=== PATIENT | female | born 2005 | race Caucasian/White ===

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

== ENCOUNTER 2023-08-23 20:41 | Emergency (ER) | payer MEDICAID, SELFPAY ==
[2023-08-23 21:16] VITALS: BP 146/104; PULSE 83; RESP 16; TEMP 36.8; O2SAT 100; BMI 19.3
[2023-08-23 22:00] VITALS: BP 134/68; PULSE 80; RESP 17; O2SAT 98
--- NOTE | 2023-08-23 22:50 | ED_ITS ---
HPI - Headache 2 General: Chief Complaint: Headache Stated Complaint: N/V, Time Seen by Provider: 08/23/23 22:42 History of Present Illness: 17-year-old female comes in today with c omplaints of headache for about 1 week with nausea and vomiting. Patient was concerned today due to feeling some twitching in her right eye. Patient reports history of headache but no migraines. Patient appears nontoxic. Patient was concerned that she may have caused a concussion because of hitting her head while standing up in her trailer. Review of Systems 2 General: Reports: 10 or more systems reviewed and unremarkable except in HPI and below Neuro: Reports: headache(s) [facility] ED 2 PFS: Medical History (Updated 08/23/23 @ 23:43 by BETTIE Hammond) Anemia Anxiety No pertinent family history Physical Exam 2 Const: COMMON NORMALS: alert HENMT: COMMON NORMALS: normocephalic HEAD & SCALP: normocephalic MOUTH: Normal oral and palatal mucosa present Neck/C-Spine: COMMON NORMALS: full ROM Resp: COMMON NORMALS: normal respiratory effort Cardio: COMMON NORMALS: regular rate RATE: regular rate GI: COMMON NORMALS: Soft to palpation and non-tender PALPATION: Yes Soft to palpation Back/Pelvis: COMMON NORMALS: thoracic and lumbar spine normal to inspection Extremity: COMMON NORMALS: normal to inspection Neuro: SENSORIUM/ORIENTATION: Yes alert Skin: COMMON NORMALS: turgor normal GENERAL SKIN EXAM: turgor normal Course 2 Vital Signs: Vital signs: Vital Signs Temperature 98.2 F 08/23/23 21:16 Pulse Rate 83 08/23/23 21:16 Respiratory Rate 16 08/23/23 21:16 Blood Pressure 146/104 08/23/23 21:16 Pulse Oximetry 100 08/23/23 21:16 Oxygen Delivery Me thod Room Air 08/23/23 21:16 MDM - Headache Medical Decision Making 17-year-old female comes in today with headache. Patient appears nontoxic. No focal neurodeficits. Patient was all extremities well. Vital signs are normal except for some mild elevation in blood pressure. Differential diagnosis includes but not limited to tension headache, migraine headache, viral syndrome, anxiety about health. CBC and CMP were normal. CT of the head showed no intracranial abnormality. Patient was given headache cocktail with dexamethasone, Reglan, ketorolac, and 500 mL of saline. Patient reports improvement of headache and symptoms. Reviewed exam with patient with recommendations for treatment and follow-up. Patient reported understanding agreed to plan. Lab Data 08/23/23 22:51 08/23/23 22:[address] 08/23/23 22:52 IMPRESSION: No acute intracranial abnormality on CT. Laboratory Results WBC 8.73 10^3/uL (4.5-13.0) 08/23/23 22:51 RBC 4.61 10^6/uL (3.85-5.65) 08/23/23 22:51 Hgb 13.50 g/dL (12.4-14.8) 08/23/23 22:51 Hct 40.4 % (36-47) 08/23/23 22:51 MCV 87.6 fl (85-98) 08/23/23 22:51 MCH 29.3 pg (27-33) 08/23/23 22:51 MCHC 33.4 g/dL (30-55) 08/23/23 22:51 RDW 12.6 % (12.1-15.1) 08/23/23 22:51 Plt Count 357 10^3/cmm (157-399) 08/23/23 22:51 MPV 9.3 fL (7.4-10.4) 08/23/23 22:51 Neut % (Auto) 55.2 % 08/23/23 22:51 Lymph % (Auto) 33.8 % 08/23/23 22:51 [place] % (Auto) 7.4 % 08/23/23 22:51 Eos % (Auto) 3.3 % 08/23/23 22:51 Baso % (Auto) 0.2 % 08/23/23 22:51 Neut # (Auto) 4.81 10^3/uL (1.8-8.0) 08/23/23 22:51 Lymph # (Auto) 3.0 10^3/uL (1.5-6.5) 08/23/23 22:51 [place] # (Auto) 0.7 10^3/uL (0.2-0.9) 08/23/23 22:51 Eos # (Auto) 0.3 10^3/uL (0.0-0.8) 08/23/23 22:51 Baso # (Auto) 0.0 10^3/uL (0.0-0.1) 08/23/23 22:51 Nucleated RBC % (auto) 0 % 08/23/23 22:51 Nucleated RBCs # 0.0 /100WBC 08/23/23 22:51 Sodium 141 mmol/L (136-145) 08/23/23 22:51 Potassium 3.5 mmol/L (3.5-5.1) 08/23/23 22:51 Chloride 105 mmol/L (98-107) 08/23/23 22:51 Carbon Dioxide 25 mmol/L (22-29) 08/23/23 22:51 Anion Gap 14.5 (5-19) 08/23/23 22:51 BUN 4 mg/dL (6-20) L 08/23/23 22:51 Creatinine 0.6 mg/dL (0.5-0.9) 08/23/23 22:51 GFR Calculation 128.8 mL/min (90-130) 08/23/23 22:51 Glucose 94 mg/dL (65-115) 08/23/23 22:51 Calculated Osmolality 289 mOsm/kg (285-295) 08/23/23 22:51 Calcium 9.0 mg/dL (8.5-10.5) 08/23/23 22:51 Total Bilirubin 0.4 mg/dL (0.15-1.2) 08/23/23 22:51 AST 21 U/L (0-32) 08/23/23 22:51 ALT 13 U/L (0-33) 08/23/23 22:51 Alkaline Phosphatase 64 U/L (35-105) 08/23/23 22:51 Total Protein 7.2 g/dL (6.6-8.7) 08/23/23 22:51 Albumin 4.7 g/dL (3.5-5.2) 08/23/23 22:51 Globulin 2.5 g/dL (1.3-4.6) 08/23/23 22:51 All radiology interpretation(s) finalized by discharge Discharge Plan Discharge Patient Disposition: Home Clinical Impression: Headache Qualifiers: Headache type: unspecified Headache chronicity pattern: acute headache I ntractability: not intractable Qualified Code(s): R51.9 - Headache, unspecified Condition: Stable Prescriptions: No Action hydrocodone-acetaminophen 5-325 mg tablet 1 tab PO Q4H PRN (Reason: Pain) Ventolin HFA 90 mcg/actuation HFA aerosol inhaler 2 puff INHALATION Q4H PRN (Reason: Shortness Of Breath) medroxyprogesterone 150 mg/mL suspension 150 mg IM Q90D escitalopram oxalate 10 mg tablet 10 mg PO QAM Iron Gummies 2 tab PO QAM triamcinolone acetonide 0.1 % cream 1 applic topical BID PRN (Reason: unknown) ibuprofen 600 mg tablet 600 mg PO Q8H PRN (Reason: pain) Qty: 20 0RF Discharge Orders: Discharge ED (Routine); Ordered 08/23/23 Ordered By: Virgilio Russ Referrals: Tayler Villalta PA [Primary Care Provider] - Discharge Diet: Usual diet Discharge Activity: Increase activity as tolerated Patient Instructions: Headache - Migraine (Adult) Activity Restrictions/Additional Instructions: Home and rest. 3 plenty water and fluids. Activity as tolerated. Follow-up with primary care for further instructions. Return to ED for new concerns. Stand Alone Forms: Work/School Release Coding Level of Care Code ED Procedures Rn for Zia Vazquez
[2023-08-23] MEDS: sodium chloride 0.9% 500 ML 999 ML IV (22:52)
--- NOTE | 2023-08-23 22:52 | CTR_ITS ---
PROCEDURE INFORMATION: Exam: CT Head Without Contrast Exam date and time: 08/23/2023 11:09 PM Age: 17 years old Clinical indication: Pain; Headache; Patient HX: C/O TREVIÑO with n/v TECHNIQUE: Imaging protocol: Computed tomography of the head without contrast. Radiation optimization: All CT scans at this facility use at least one of these dose optimization techniques: automated exposure control; mA and/or kV adjustment per patient size (includes targeted exams where dose is matched to clinical indication); or iterative reconstruction. COMPARISON: No relevant prior studies available. RADIATION DOSE METRICS: Total DLP (mGy-cm): 989.08 FINDINGS: Brain: Normal. No hemorrhage. Unremarkable white matter. No mass effect. Cerebral ventricles: No ventriculomegaly. Paranasal sinuses: Visualized sinuses are unremarkable. No fluid levels. Mastoid air cells: Visualized mastoid air cells are well aerated. Bones: Unremarkable. No acute fracture. Soft tissues: Unremarkable. CT/CT head wo con* [id number] IMPRESSION: No acute intracranial abnormality on CT.
[2023-08-23] MEDS: metoclopramide 5 mg/mL SDV 2 mL 10 MG IVP (22:53)
[2023-08-23] MEDS: ketorolac 30 mg/mL INJ 15 MG IVP (22:54)
[2023-08-23] MEDS: dexamethasone 10 mg/mL INJ IVP (22:55)
[2023-08-23 23:00] VITALS: BP 153/95; PULSE 97; RESP 18; O2SAT 100
[2023-08-23 23:03] LABS: Basophils % 0.2 %; Eosinophils # 0.3 10^3/uL (0.0-0.8); Eosinophils % 3.3 %; Hematocrit 40.4 % (36-47); Lymphocytes % 33.8 %; Mean Corpuscular HGB Conc 33.4 g/dL (30-55); Mean Corpuscular Hemoglobin 29.3 pg (27-33); Mean Corpuscular Volume 87.6 fl (85-98); Mean Platelet Volume 9.3 fL (7.4-10.4); Monocytes # 0.7 10^3/uL (0.2-0.9); Monocytes % 7.4 %; Neutrophils # 4.81 10^3/uL (1.8-8.0); Neutrophils % 55.2 %; Nucleated Red Blood Cells % 0 %; Platelet Count 357 10^3/cmm (157-399); Red Blood Count 4.61 10^6/uL (3.85-5.65); Red Cell Distribution Width 12.6 % (12.1-15.1); White Blood Count 8.73 10^3/uL (4.5-13.0)
[2023-08-23 23:23] LABS: Alanine Aminotransferase 13 U/L (0-33); Albumin Level 4.7 g/dL (3.5-5.2); Alkaline Phosphatase 64 U/L (35-105); Anion Gap 14.5 (5-19); Aspartate Amino Transferase 21 U/L (0-32); Blood Urea Nitrogen 4 mg/dL (6-20); Carbon Dioxide 25 mmol/L (22-29); Chloride 105 mmol/L (98-107); Creatinine Clr Calc Pharmacy 126.9493; Globulin 2.5 g/dL (1.3-4.6); Glomerular Filtration Rate 128.8 mL/min (90-130); Glucose 94 mg/dL (65-115); Osmolality Calculated 289 mOsm/kg (285-295); Potassium 3.5 mmol/L (3.5-5.1); Sodium 141 mmol/L (136-145); Total Bilirubin 0.4 mg/dL (0.15-1.2); Total Protein 7.2 g/dL (6.6-8.7)
[2023-08-24] VITALS: BP 121/86; PULSE 91; RESP 18; O2SAT 98
== END 2023-08-24 00:11 | disposition home or self-care (01) ==
PROVIDERS: Emergency Medicine; Emergency Provider Nurse Practitioner Family; PCP Physician Assistant
DX: R51.9 Headache, unspecified (principal)
CPT/HCPCS: 70450; 80053; 85025; 96361; 96374; 96375; 99285; J1100; J1885; J2765; J7040

== ENCOUNTER 2023-10-06 06:15 | Outpatient (CLI) | payer MEDICAID, SELFPAY ==
--- NOTE | 2023-10-06 | USR_ITS ---
PROCEDURE INFORMATION: Exam: US Pelvis, Transvaginal, Non-Obstetric Exam date and time: 10/06/2023 1:24 PM Age: 18 years old Clinical indication: Menstruation abnormalities; Excessive menstruation; Additional info: Excessive menstruation with irregular cycle TECHNIQUE: Imaging protocol: Real-time transvaginal pelvic (non-obstetric) ultrasound with image documentation. Transvaginal imaging was used for better evaluation of the endometrium, adnexa, and/or cervix. COMPARISON: US pelv w/transvag [id number] 10/17/2022 4:27 PM FINDINGS: Uterus: Uterus is normal. Endometrial stripe is normal, measuring 0.5 cm in thickness. Right ovary/adnexa: Normal. No mass. Normal ovarian blood flow on color Doppler. Left ovary/adnexa: Normal. No mass. Normal ovarian blood flow on color Doppler. Urinary bladder: Urinary bladder is limited. Intraperitoneal space: Trace amount of fluid noted in the pelvis, likely physiologic. Other findings: Small paraovarian cyst is seen between the left and right ovaries, measuring approximately 5.5 cm. US/US transvaginal [id number] IMPRESSION: 1. No acute findings. 2. Small paraovarian cyst.
== END 2023-10-06 06:16 | disposition home or self-care (01) ==
PROVIDERS: PCP Physician Assistant; Visit Provider Physician Assistant
DX: N92.1 Excessive and frequent menstruation with irregular cycle (principal)

== ENCOUNTER 2023-10-16 13:01 | Emergency (ER) | payer MEDICAID, SELFPAY ==
[2023-10-16 13:07] VITALS: BP 133/86; PULSE 80; RESP 16; TEMP 36.7; O2SAT 96; BMI 19.3
[2023-10-16 13:18] VITALS: PULSE 94; RESP 16; O2SAT 98
[2023-10-16 13:23] LABS: Basophils % 0.3 %; Eosinophils # 0.1 10^3/uL (0.0-0.8); Hematocrit 42.4 % (36-47); Lymphocytes # 1.1 10^3/uL (1.5-6.5); Lymphocytes % 16.3 %; Mean Corpuscular HGB Conc 33.7 g/dL (30-55); Mean Corpuscular Hemoglobin 28.8 pg (27-33); Mean Corpuscular Volume 85.5 fl (85-98); Mean Platelet Volume 9.5 fL (7.4-10.4); Monocytes # 0.5 10^3/uL (0.2-0.9); Monocytes % 7.4 %; Neutrophils # 4.79 10^3/uL (1.8-8.0); Neutrophils % 73.8 %; Nucleated Red Blood Cells % 0 %; Platelet Count 325 10^3/cmm (157-399); Red Blood Count 4.96 10^6/uL (3.85-5.65); Red Cell Distribution Width 12.1 % (12.1-15.1); White Blood Count 6.49 10^3/uL (4.5-13.0)
[2023-10-16] MEDS: sodium chloride 0.9% 1,000 ML 999 ML IV (13:25)
[2023-10-16] MEDS: ondansetron 2 mg/ML SDV 2 mL 4 MG IVP (13:26)
--- NOTE | 2023-10-16 13:32 | ECG_ITS ---
[facility] Test Date: 2023-10-16 Pat Name: David Oneil Department: Room: Gender: Female Decal Decorator: : 2005 Requested By: Josr Mejias Order Number: [id number] Jo MD: Henrik aRmírez M.D. Measurements Intervals [place] Rate: 85 P: -29 [place]: 153 QRS: 75 QRSD: 86 T: -3 QT: 350 QTc: 418 Interpretive Statements SINUS RHYTHM NONSPECIFIC T-WAVE ABNORMALITY Compared to ECG 07/02/2022 16:29:00 Short [place] interval no longer present Possible ischemia no longer present T-wave abnormality still present Electronically Signed On 10-16-2023 14:11:23 CDT by Henrik Ramírez M.D. [id number]
--- NOTE | 2023-10-16 13:38 | ED_ITS ---
HPI - Abdominal Pain 2 General: Chief Complaint: Abdominal Pain Stated Complaint: abd pain, back pain Time Seen by Provider: 10/16/23 13:06 Source: patient Mode of arrival: ambulatory History of Present Illness: 18-year-old female who presents emergenc y room with right-sided pelvic pain. She has seen a few days ago to pelvic cyst on the right ovary has been present for some time now. She is concerned it may be leaking she had increasing pain today with routine activities of daily living and going to work. No fever sweats or chills no dysuria urgency or frequency no hematochezia melena hematemesis coffee-ground emesis. She does not believe she is . MD elicited complaint: abdominal pain Pertinent past history: none Location: None Quality: cramping Associated Symptoms: Reports nausea; Denies bloating, chills, GI cramping, dysuria, fever(s) and vomiting Review of Systems 2 Const: Denies: fever(s) or chills Card: Denies: chest pain Resp: Denies: dyspnea GI: Reports: abdominal pain and nausea; Denies: vomiting, bloating or GI cramping : Denies: dysuria, urinary frequency or urinary urgency Musc: Denies: neck pain or back pain Skin/Breast: Denies: rash PFSH ED 2 PFSH: Medical History Anemia Anxiety No pertinent family history Physical Exam 2 Const: GENERAL APPEARANCE: cooperative and comfortable O RIENTATION/CONSCIOUSNESS: Yes awake, Yes oriented to person, Yes oriented to place and Yes oriented to time HENMT: COMMON NORMALS: normocephalic, atraumatic and hearing grossly normal bilaterally HEAD & SCALP: normocephalic and atraumatic Resp: COMMON NORMALS: normal respiratory effort, No retractions, No use of accessory muscles and clear to auscultation bilaterally AUSCULTATION: clear to auscultation bilaterally Cardio: COMMON NORMALS: regular rate, regular rhythm and No murmurs present (Cardio) RATE: regular rate RHYTHM: regular rhythm GI: COMMON NORMALS: Soft to palpation and No hepatosplenomegaly present A USCULTATION: Yes normoactive bowel sounds PALPATION: Yes Soft to palpation, No Tenderness to palpation present (GI), No Guarding due to palpation present (GI) and Yes No hepatosplenomegaly present Extremity: COMMON NORMALS: normal to inspection, capillary refill normal, no clubbing, cyanosis or edema, no calf tenderness and no pedal edema Neuro: SENSORIUM/ORIENTATION: Yes oriented to person, Yes oriented to place and Yes oriented to time Skin: COMMON NORMALS: no rashes or lesions noted GENERAL SKIN EXAM: no rashes or lesions noted Course 2 Vital Signs: Vital signs: Vital Signs Temperature 98.1 F 10/16/23 13:07 Pulse Rate 94 10/16/23 14:29 Respiratory Rate 16 10/16/23 14:29 Blood Pressure 136/85 10/16/23 14:29 Pulse Oximetry 96 10/16/23 14:29 Oxygen Delivery Me thod Room Air 10/16/23 14:29 MDM - Abdominal Pain Medical Decision Making Pelvic ultrasound shows unchanged pelvic cysts rather large. Dr. Luna made mention that it dates back into 2022. She is very petite young lady at this point I think it would be ridley for her to see gynecology. Will refer back to primary care for referral to gynecology. There is comment about potential for ovarian torsion and Dr. Fatima's note however I contacted her she said the blood flow is good which is also noted in her note and that there is no evidence of ovarian torsion at this time but she is concerned because of the size of this and is positioning the patient may be susceptible to it this is why Dr. Fatima and I both are recommending that she see gynecology. Medical Records I reviewed the patient's medical records. Lab Data I reviewed the patient's lab results. 10/16/23 13:17 10/16/23 13:17 Labs/Radiology: Radiology Impressions Transvaginal US 10/16/23 13:39 IMPRESSION: 1. There is a large simple cystic mass centered in the cul-de-sac which extends to abut each ovary. Slightly greater contact on the RIGHT ovary. This has been previously described without significant change since 10/17/2022. Cyst measures 5.7 x 4.5 x 6.0 cm. Ovarian cyst versus paraovarian cyst. Due to the size and contact on the ovaries there is some concern for ovarian torsion. At this time both ovaries contain normal vascularity. As there has been no significant improvement in size consider DATA PROCESSING OPERATOR evaluation for possible surgical evaluation. 2. There are multiple small follicles within each ovary. The number is approaching follicles necessary for polycystic ovarian syndrome. Laboratory Results WBC 6.49 10^3/uL (4.5-13.0) 10/16/23 13:17 RBC 4.96 10^6/uL (3.85-5.65) 10/16/23 13:17 Hgb 14.30 g/dL (12.4-14.8) 10/16/23 13:17 Hct 42.4 % (36-47) 10/16/23 13:17 MCV 85.5 fl (85-98) 10/16/23 13:17 MCH 28.8 pg (27-33) 10/16/23 13:17 MCHC 33.7 g/dL (30-55) 10/16/23 13:17 RDW 12.1 % (12.1-15.1) 10/16/23 13:17 Plt Count 325 10^3/cmm (157-399) 10/16/23 13:17 MPV 9.5 fL (7.4-10.4) 10/16/23 13:17 Neut % (Auto) 73.8 % 10/16/23 13:17 Lymph % (Auto) 16.3 % 10/16/23 13:17 [place] % (Auto) 7.4 % 10/16/23 13:17 Eos % (Auto) 2.0 % 10/16/23 13:17 Baso % (Auto) 0.3 % 10/16/23 13:17 Neut # (Auto) 4.79 10^3/uL (1.8-8.0) 10/16/23 13:17 Lymph # (Auto) 1.1 10^3/uL (1.5-6.5) L 10/16/23 13:17 [place] # (Auto) 0.5 10^3/uL (0.2-0.9) 10/16/23 13:17 Eos # (Auto) 0.1 10^3/uL (0.0-0.8) 10/16/23 13:17 Baso # (Auto) 0.0 10^3/uL (0.0-0.1) 10/16/23 13:17 Nucleated RBC % (auto) 0 % 10/16/23 13:17 Nucleated RBCs # 0.0 /100WBC 10/16/23 13:17 Sodium 142 mmol/L (136-145) 10/16/23 13:17 Potassium 3.9 mmol/L (3.5-5.1) 10/16/23 13:17 Chloride 107 mmol/L (98-107) 10/16/23 13:17 Carbon Dioxide 21 mmol/L (22-29) L 10/16/23 13:17 Anion Gap 17.9 (5-19) 10/16/23 13:17 BUN 5 mg/dL (6-20) L 10/16/23 13:17 Creatinine 0.7 mg/dL (0.5-0.9) 10/16/23 13:17 GFR Calculation 106.7 mL/min (90-130) 10/16/23 13:17 Glucose 93 mg/dL (65-115) 10/16/23 13:17 Calculated Osmolality 291 mOsm/kg (285-295) 10/16/23 13:17 Calcium 9.8 mg/dL (8.5-10.5) 10/16/23 13:17 Total Bilirubin 0.7 mg/dL (0.15-1.2) 10/16/23 13:17 AST 20 U/L (0-32) 10/16/23 13:17 ALT 14 U/L (0-33) 10/16/23 13:17 Alkaline Phosphatase 72 U/L (35-105) 10/16/23 13:17 Total Protein 7.6 g/dL (6.6-8.7) 10/16/23 13:17 Albumin 4.9 g/dL (3.5-5.2) 10/16/23 13:17 Globulin 2.7 g/dL (1.3-4.6) 10/16/23 13:17 HCG, Qual Negative (Negative) 10/16/23 13:17 Urine Color Yellow (Yellow) 10/16/23 14:30 Urine Appearance Slightly cloudy (CLEAR) 10/16/23 14:30 Urine pH 8 (5-7) H 10/16/23 14:30 Ur Specific [place] 1.005 (1.005-1.030) 10/16/23 14:30 Urine Protein Neg (Negative) 10/16/23 14:30 Urine Glucose (UA) Norm (Normal) 10/16/23 14:30 Urine Ketones 1+ (Negative) H 10/16/23 14:30 Urine Blood 2+ (Negative) H 10/16/23 14:30 Urine Nitrate Negative (Negative) 10/16/23 14:30 Urine Bilirubin Neg (Negative) 10/16/23 14:30 Urine Urobilinogen Norm mg/dL (Negative) 10/16/23 14:30 Ur Leukocyte Esterase Trace (Negative) H 10/16/23 14:30 Urine RBC 0-4 /hpf (0-2) H 10/16/23 14:30 Urine WBC Rare /hpf (0-5) 10/16/23 14:30 Ur Squamous Epith Cells 0-4 /hpf (0-5) H 10/16/23 14:30 Ur Transition Epith Cell 0-4 /hpf 10/16/23 14:30 Amorphous Sediment Not Reportable 10/16/23 14:30 Urine Bacteria None /hpf (NONE) 10/16/23 14:30 Urine Mucus None /hpf 10/16/23 14:30 All radiology interpretation(s) finalized by discharge Discharge Plan Discharge Patient Disposition: Home Clinical Impression: Ovarian cyst Condition: Stable Prescriptions: New diclofenac sodium 75 mg tablet,delayed release (DR/EC) 75 mg PO Q12H PRN (Reason: pain) Qty: 20 0RF No Action albuterol sulfate [Ventolin HFA] 90 mcg/actuation HFA aerosol inhaler 2 puff INHALATION Q4H PRN (Reason: Shortness Of Breath) medroxyprogesterone 150 mg/mL suspension 150 mg IM Q90D Discharge Orders: Discharge ED (Routine); Ordered 10/16/23 Ordered By: Josr Mcconnell Referrals: Tayler Villalta PA [Primary Care Provider] - Discharge Diet: Usual diet Discharge Activity: Increase activity as tolerated Patient Instructions: Opioid Safety, Pain Management Activity Restrictions/Additional Instructions: Thank you for choosing [facility] for your healthcare needs today. It is very important that you follow up as instructed or that you return to the Emergency Department should you have concerns or if your condition changes or worsens in any way. You were seen today with pelvic pain. The cyst on the right ovary is unchanged in size. You can use diclofenac as needed. Recommend that you follow-up with your primary care doctor referral to gynecology for this cyst. Coding Level of Care Code ED Welder Fitter Helper for Zia Vazquez
--- NOTE | 2023-10-16 13:39 | US_ITS ---
WS: [id number] US transvaginal [id number] HISTORY: pelvic pain, r ovarian cyst COMPARISON: 10/06/2023, 10/17/2022 Uterus: 6.3 cm x 3.7 cm x 3.3 cm. Normal size anteverted uterus. No fibroid or mass. Endometrium: 0.4 cm. Normal. Right ovary: 3.4 cm x 3.3 cm x 2.6 cm. Normal size and vascularity, no cystic or solid masses. Severa l small peripheral follicles. Deep in the cul-de-sac is a large simple cyst measuring 5.7 x 4.5 x 6.0 cm. Mass extends across the m idline and does abut each ovary with minimal displacement. There is through transmission. This may be an extra ovarian cyst or exophytic from the RIGHT ovary. The largest contact is on the RIGHT ovary. Cyst has not significantly increased in size since 10/06/2023 Left ovary: 2.7 cm x 2.5 cm x 2.7 cm. Normal size and vascularity, no cystic or solid masses. Multipl e small peripheral follicles. No free fluid in the cul-de-sac. US/US transvaginal [id number] IMPRESSION: 1. There is a large simple cystic mass centered in the cul-de-sac which extend s to abut each ovary. Slightly greater contact on the RIGHT ovary. This has bee n previously described without significant change since 10/17/2022. Cyst measure s 5.7 x 4.5 x 6.0 cm. Ovarian cyst versus paraovarian cyst. Due to the size and contact on the ovaries there is some concern for ovarian torsion. At this time both ovaries contain normal vascularity. As there has been no significant impr ovement in size consider CASH CONTROL SPECIALIST evaluation for possible surgical evaluation. 2. There are multiple small follicles within each ovary. The number is approac omid follicles necessary for polycystic ovarian syndrome.
[2023-10-16 13:41] LABS: Alanine Aminotransferase 14 U/L (0-33); Albumin Level 4.9 g/dL (3.5-5.2); Alkaline Phosphatase 72 U/L (35-105); Blood Urea Nitrogen 5 mg/dL (6-20); Calcium 9.8 mg/dL (8.5-10.5); Carbon Dioxide 21 mmol/L (22-29); Chloride 107 mmol/L (98-107); Creatinine Clr Calc Pharmacy 107.9144; Globulin 2.7 g/dL (1.3-4.6); Glomerular Filtration Rate 106.7 mL/min (90-130); Glucose 93 mg/dL (65-115); Osmolality Calculated 291 mOsm/kg (285-295); Sodium 142 mmol/L (136-145); Total Bilirubin 0.7 mg/dL (0.15-1.2); Total Protein 7.6 g/dL (6.6-8.7)
[2023-10-16 13:42] LABS: Anion Gap 17.9 (5-19); Potassium 3.9 mmol/L (3.5-5.1)
[2023-10-16 13:43] LABS: Aspartate Amino Transferase 20 U/L (0-32)
[2023-10-16] MEDS: ketorolac 30 mg/mL INJ IVP (13:44)
[2023-10-16 14:08] LABS: HCG, Serum Qual Negative (Negative)
[2023-10-16 14:29] VITALS: BP 136/85; PULSE 94; RESP 16; O2SAT 96
[2023-10-16 15:04] LABS: Urine Appearance Slightly Cloudy (CLEAR); Urine Color Yellow (Yellow); pH Urine 8 (5-7)
[2023-10-16 15:05] LABS: Add Urine Microscopic? YES; Bilirubin Urine Neg (Negative); Blood Urine 2+ (Negative); Glucose Urine UA Norm (Normal); Ketones Urine 1+ (Negative); Leukocyte Esterase Urine Trace (Negative); Nitrate Urine Negative (Negative); Protein Urine Neg (Negative); Specific Gravity, Urine 1.005 (1.005-1.030); Urobilinogen Urine Norm (Negative)
[2023-10-16 15:09] LABS: RBC Urine 0-4 /hpf (0-2); Squamous Epithelial Cell Urine 0-4 /hpf (0-5); Transitional Epi Cells Urine 0-4 /hpf; WBC Urine RARE /hpf (0-5)
[2023-10-16 15:10] LABS: Add Urine Culture? No
[2023-10-16] MEDS: HYDROcodone-acetaminophen 5-325 mg Tablet 1 TAB PO (16:19)
[2023-10-16 16:24] VITALS: PULSE 76; RESP 16; O2SAT 99
== END 2023-10-16 16:23 | disposition home or self-care (01) ==
PROVIDERS: Emergency Provider Family Medicine; PCP Physician Assistant
DX: N83.202 Unspecified ovarian cyst, left side (principal); N83.201 Unspecified ovarian cyst, right side
CPT/HCPCS: 36415; 76830; 80053; 81001; 84703; 85025; 93005; 96361; 96374; 96375; 99285; J1885; J2405; J7030

== ENCOUNTER 2023-10-22 23:30 | Emergency (ER) | payer MEDICAID, SELFPAY ==
[2023-10-22 23:35] VITALS: BP 137/95; PULSE 75; TEMP 36.8; BMI 19.3
--- NOTE | 2023-10-22 23:36 | ED_ITS ---
HPI - Animal Bite General: Chief Complaint: Animal Bite Stated Complaint: Dog and Cats Bites Time Seen by Provider: 10/22/23 23:32 History of Present Illness: 18-year-old female comes in today for in jury to the right hand. Patient reports that she was trying to get her sister's dog off a When she was accidentally bit on the right hand by the dog or cat. Patient has 2 puncture wounds to the dorsal right hand. Patient has good range of motion. Cap refill and sensations normal distally. Patient appears nontoxic. Patient reports her tetanus is up-to-date. Review of Systems General: Reports: 10 or more systems reviewed and unremarkable except in HPI and below PFSH ED PFSH: Medical History Anemia Anxiety No pertinent family history Physical Exam Const: COMMON NORMALS: alert HENMT: COMMON NORMALS: normocephalic HEAD & SCALP: normocephalic Neck/C-Spine: COMMON NORMALS: full ROM Resp: COMMON NORMALS: normal respiratory effort Cardio: COMMON NORMALS: regular rate RATE: regular rate GI: COMMON NORMALS: non-tender Back/Pelvis: COMMON NORMALS: thoracic and lumbar spine normal to inspection Extremity: COMMON NORMALS: normal to inspection Neuro: SENSORIUM/ORIENTATION: Yes alert Skin: COMMON NORMALS: turgor normal GENERAL SKIN EXAM: turgor normal TRAUMA: puncture (Dorsal right hand) Course Vital Signs: Vital signs: Vital Signs Temperature 98.2 F 10/22/23 23:35 Pulse Rate 75 10/22/23 23:35 Blood Pressure 137/95 10/22/23 23:35 Oxygen Delivery Me thod Room Air 10/22/23 23:35 MDM - Animal Bite Medical Decision Making 18-year-old female comes in today for injury to the dorsal right hand. On exam patient has 2 puncture wounds to the dorsal right hand. Normal range of motion. No foreign body or fractures are noted. Differential diagnosis considered fracture, foreign body, puncture wound, need for prophylaxis tetanus, need for prophylaxis antibiotic. No signs of serious injury is noted at this time. Patient will be placed on Augmentin for prophylaxis antibiotic treatment. Reviewed exam with patient with recommendation for treatment and follow-up. Patient reported understanding agreed to plan. No radiology studies performed this visit Discharge Plan Discharge Patient Disposition: Home Clinical Impression: Bite wound of right hand Qualifiers: Encounter type: initial encounter Qualified Code(s): S61.451A - Open bite of right hand, initial encounter Cat bite Qualifiers: Encounter type: initial encounter Qualified Code(s): W55.01XA - Bitten by cat, initial encounter Condition: Stable Prescriptions: New amoxicillin-pot clavulanate 875-125 mg tablet 1 tab PO BID Qty: 20 0RF No Action albuterol sulfate [Ventolin HFA] 90 mcg/actuation HFA aerosol inhaler 2 puff INHALATION Q4H PRN (Reason: Shortness Of Breath) medroxyprogesterone 150 mg/mL suspension 150 mg IM Q90D diclofenac sodium 75 mg tablet,delayed release (DR/EC) 75 mg PO Q12H PRN (Reason: pain) Qty: 20 0RF Discharge Orders: Discharge ED (Routine); Ordered 10/22/23 Ordered By: Virgilio Russ Referrals: Tayler Villalta PA [Primary Care Provider] - Discharge Diet: Usual diet Discharge Activity: Increase activity as tolerated Patient Instructions: Animal Bite (ED) Activity Restrictions/Additional Instructions: Clean wound twice a day with mild soap and water and apply [id number] bacitracin antibiotic ointment to the wounds. Take oral antibiotic 1 tablet twice a day for the next 10 days. Monitor site for worsening signs of infection such as increased redness and swelling, fever, or severe pain. Return to ER for new concerns. Coding Level of Care Code ED Web Design Specialist for Zia Vazquez
--- NOTE | 2023-10-22 23:49 | PC.NURSE ---
dasia from [facility] was contacted and [facility] like her to go by and make a report about the bite.
[2023-10-23 00:03] VITALS: BP 137/81; PULSE 75; RESP 18; O2SAT 98
[2023-10-23] MEDS: amoxicillin-clav 875-125 mg Tablet 1 TAB PO (00:03)
[2023-10-23] MEDS: bacitracin ointment Pkt 1 EACH TOPICAL (00:03)
== END 2023-10-23 00:05 | disposition home or self-care (01) ==
PROVIDERS: Emergency Provider Nurse Practitioner Family; PCP Physician Assistant
DX: S61.451A Open bite of right hand, initial encounter (principal); W55.01XA Bitten by cat, initial encounter
CPT/HCPCS: 99283

== ENCOUNTER 2023-10-27 10:23 | Emergency (ER) | payer MEDICAID, SELFPAY ==
[2023-10-27 10:43] VITALS: BP 130/91; PULSE 88; RESP 17; TEMP 36.9; O2SAT 100; BMI 19.3
[2023-10-27] MEDS: tetanus-dipt-pertussis 0.5 mL SDV IM (12:27)
--- NOTE | 2023-10-27 12:34 | W.ED.ANIMALB ---
HPI - Animal Bite General: Chief Complaint: Animal Bite Stated Complaint: cat bite, doc referrel Time Seen by Provider: 10/27/23 10:26 Source: patient Mode of arrival: ambulatory History of Present Illness: 18-year-old female presents emergency room for rabies vaccination. She was bitten on 7 3 was seen after that and appropriately started on Augmentin. She also needs updating of her tetanus also done at that visit. She states that after the cat bite the hands fall significantly she had a little bit of red streaking developed that has begun to resolve she is continue to take her antibiotic she denies any fever sweats or chills at home. This is an evidently an unknown feral cat and it has since . She returns for about rabies prophylaxis. MD complaint: animal bite Onset (ago): day(s) Animal: cat Description of animal: wild animal Mechanism: bite Location - Extremities: Right: hand Pain description: constant Context: playing with animal Associated symptoms: Deny bleeding, chills, diaphoresis, erythema, fever(s), headache(s), numbness, rash, syncope, weakness or wound drainage Treatments prior to arrival: other (Oral antibiotic) Related Data: Patient tetanus UTD: Yes (Updated 10/22/2023) Review of Systems Const: Denies: fever(s), chills or diaphoresis Card: Denies: syncope Resp: Denies: dyspnea GI: Denies: abdominal pain : Denies: dysuria, urinary frequency or urinary urgency Musc: Denies: neck pain or back pain Neuro: Denies: headache(s) [facility] ED PFSH: Medical History Anemia Anxiety No pertinent family history Physical Exam Const: COMMON NORMALS: no acute distress GENERAL APPEARANCE: cooperative and comfortable ORIENTATION/CONSCIOUSNESS: Yes awake, Yes oriented to person, Yes oriented to place and Yes oriented to time HENMT: COMMON NORMALS: normocephalic, atraumatic and hearing grossly normal bilaterally HEAD & SCALP: normocephalic and atraumatic Resp: COMMON NORMALS: normal respiratory effort, No retractions, No use of accessory muscles and clear to auscultation bilaterally AUSCULTATION: clear to auscultation bilaterally Cardio: COMMON NORMALS: regular rate, regular rhythm and No murmurs present (Cardio) RATE: regular rate RHYTHM: regular rhythm Extremity: COMMON NORMALS: capillary refill normal, no clubbing, cyanosis or edema, no calf tenderness and no pedal edema OTHER: Examination of the right hand there is swelling inflammation around the second metacarpal phalangeal joint. Patient reports swelling is significantly decreased there is no axillary or epitrochlear lymphadenopathy noted. No drainage from the wound. Neuro: SENSORIUM/ORIENTATION: Yes oriented to person, Yes oriented to place and Yes oriented to time Skin: COMMON NORMALS: no rashes or lesions noted GENERAL SKIN EXAM: no rashes or lesions noted and no erythema Course Vital Signs: Vital signs: Vital Signs Temperature 98.5 F 10/27/23 10:43 Pulse Rate 74 10/27/23 14:30 Respiratory Rate 17 10/27/23 10:43 Blood Pressure 126/85 10/27/23 14:30 Pulse Oximetry 98 10/27/23 14:30 Oxygen Delivery Me thod Room Air 10/27/23 10:43 MDM - Animal Bite Medical Decision Making Patient returns emergency room for a cat bite. She was seen previously and started on Augmentin. The cat that bit her is unknown feral cat and is now . She had a mild infection on her hands from at the sites she was bitten. That has begun to improve she has no lymphadenopathy on exam. Because the area is infected and several days out she patient was given immunoglobulin dose IM and given that rabies vaccine first shot. Patient will have regular series as an outpatient given schedule at the time of discharge. Continue course of Augmentin. Culture done today. No leukocytosis. Appears to be responding to antibiotics well patient reports swelling is significantly improved. Differential Diagnosis Likely cat bite Medical Records I reviewed the patient's medical records. Lab Data I reviewed the patient's lab results. 10/27/23 12:35 10/27/23 12:35 Laboratory Results WBC 5.54 10^3/uL (4.5-13.0) 10/27/23 12:35 RBC 4.93 10^6/uL (3.85-5.65) 10/27/23 12:35 Hgb 14.10 g/dL (12.4-14.8) 10/27/23 12:35 Hct 44.1 % (36-47) 10/27/23 12:35 MCV 89.5 fl (85-98) 10/27/23 12:35 MCH 28.6 pg (27-33) 10/27/23 12:35 MCHC 32.0 g/dL (30-55) 10/27/23 12:35 RDW 12.0 % (12.1-15.1) L 10/27/23 12:35 Plt Count 349 10^3/cmm (157-399) 10/27/23 12:35 MPV 10.3 fL (7.4-10.4) 10/27/23 12:35 Neut % (Auto) 43.1 % 10/27/23 12:35 Lymph % (Auto) 40.3 % 10/27/23 12:35 Mcdonald % (Auto) 7.8 % 10/27/23 12:35 Eos % (Auto) 8.1 % 10/27/23 12:35 Baso % (Auto) 0.5 % 10/27/23 12:35 Neut # (Auto) 2.39 10^3/uL (1.8-8.0) 10/27/23 12:35 Lymph # (Auto) 2.2 10^3/uL (1.5-6.5) 10/27/23 12:35 Mcdonald # (Auto) 0.4 10^3/uL (0.2-0.9) 10/27/23 12:35 Eos # (Auto) 0.5 10^3/uL (0.0-0.8) 10/27/23 12:35 Baso # (Auto) 0.0 10^3/uL (0.0-0.1) 10/27/23 12:35 Nucleated RBC % (auto) 0 % 10/27/23 12:35 Nucleated RBCs # 0.0 /100WBC 10/27/23 12:35 Sodium 138 mmol/L (136-145) 10/27/23 12:35 Potassium 4.0 mmol/L (3.5-5.1) 10/27/23 12:35 Chloride 102 mmol/L (98-107) 10/27/23 12:35 Carbon Dioxide 25 mmol/L (22-29) 10/27/23 12:35 Anion Gap 15.0 (5-19) 10/27/23 12:35 BUN 9 mg/dL (6-20) 10/27/23 12:35 Creatinine 0.6 mg/dL (0.5-0.9) 10/27/23 12:35 GFR Calculation 127.5 mL/min (90-130) 10/27/23 12:35 Glucose 83 mg/dL (65-115) 10/27/23 12:35 Calculated Osmolality 284 mOsm/kg (285-295) L 10/27/23 12:35 Calcium 9.8 mg/dL (8.5-10.5) 10/27/23 12:35 Total Bilirubin 0.4 mg/dL (0.15-1.2) 10/27/23 12:35 AST 17 U/L (0-32) 10/27/23 12:35 ALT 11 U/L (0-33) 10/27/23 12:35 Alkaline Phosphatase 73 U/L (35-105) 10/27/23 12:35 Total Protein 7.4 g/dL (6.6-8.7) 10/27/23 12:35 Albumin 4.6 g/dL (3.5-5.2) 10/27/23 12:35 Globulin 2.8 g/dL (1.3-4.6) 10/27/23 12:35 No radiology studies performed this visit Discharge Plan Discharge Patient Disposition: Home Clinical Impression: Need for post exposure prophylaxis for rabies Cat bite Qualifiers: Encounter type: initial encounter Qualified Code(s): W55.01XA - Bitten by cat, initial encounter Condition: Stable Prescriptions: No Action albuterol sulfate [Ventolin HFA] 90 mcg/actuation HFA aerosol inhaler 2 puff INHALATION Q4H PRN (Reason: Shortness Of Breath) medroxyprogesterone 150 mg/mL suspension 150 mg IM Q90D diclofenac sodium 75 mg tablet,delayed release (DR/EC) 75 mg PO Q12H PRN (Reason: pain) Qty: 20 0RF amoxicillin-pot clavulanate 875-125 mg tablet 1 tab PO BID Qty: 20 0RF Discharge Orders: Discharge ED (Routine); Ordered 10/27/23 Ordered By: Josr Mcconnell Referrals: Tayler Villalta PA [Primary Care Provider] - Discharge Diet: Usual diet Discharge Activity: Resume usual activity Patient Instructions: Rabies Vaccine (By injection), Rabies Immune Globulin (By injection), Opioid Safety, Pain Management Activity Restrictions/Additional Instructions: Thank you for choosing [facility] for your healthcare needs today. It is very important that you follow up as instructed or that you return to the Emergency Department should you have concerns or if your condition changes or worsens in any way. You were seen today for a cat bite by an animal with unknown rabies vaccination status. We recommend that you get the immunoglobulin today as well as rabies vaccine series. At discharge you were given a schedule for the remainder of the rabies vaccinations. 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
[2023-10-27 12:59] LABS: Basophils % 0.5 %; Eosinophils # 0.5 10^3/uL (0.0-0.8); Eosinophils % 8.1 %; Hematocrit 44.1 % (36-47); Lymphocytes # 2.2 10^3/uL (1.5-6.5); Lymphocytes % 40.3 %; Mean Corpuscular Hemoglobin 28.6 pg (27-33); Mean Corpuscular Volume 89.5 fl (85-98); Mean Platelet Volume 10.3 fL (7.4-10.4); Monocytes # 0.4 10^3/uL (0.2-0.9); Monocytes % 7.8 %; Neutrophils # 2.39 10^3/uL (1.8-8.0); Neutrophils % 43.1 %; Nucleated Red Blood Cells % 0 %; Platelet Count 349 10^3/cmm (157-399); Red Blood Count 4.93 10^6/uL (3.85-5.65); White Blood Count 5.54 10^3/uL (4.5-13.0)
[2023-10-27] MEDS: rabies vaccine 2.5 unit SDV IM (13:05)
[2023-10-27 13:22] LABS: Alanine Aminotransferase 11 U/L (0-33); Albumin Level 4.6 g/dL (3.5-5.2); Alkaline Phosphatase 73 U/L (35-105); Aspartate Amino Transferase 17 U/L (0-32); Blood Urea Nitrogen 9 mg/dL (6-20); Calcium 9.8 mg/dL (8.5-10.5); Carbon Dioxide 25 mmol/L (22-29); Chloride 102 mmol/L (98-107); Creatinine Clr Calc Pharmacy 125.9001; Globulin 2.8 g/dL (1.3-4.6); Glomerular Filtration Rate 127.5 mL/min (90-130); Glucose 83 mg/dL (65-115); Osmolality Calculated 284 mOsm/kg (285-295); Sodium 138 mmol/L (136-145); Total Bilirubin 0.4 mg/dL (0.15-1.2); Total Protein 7.4 g/dL (6.6-8.7)
--- NOTE | 2023-10-27 13:22 | PC.NURSE ---
DELAY IN DISCHARGE DUE TO WAITING ON IMMUNEGLOBULIN ADMINISTRATION.
[2023-10-27] MEDS: rabies IG 300 unit/mL SDV 1 mL 1020 UNIT IM (14:09)
[2023-10-27 14:30] VITALS: BP 126/85; PULSE 74; O2SAT 98
== END 2023-10-27 14:31 | disposition home or self-care (01) ==
PROVIDERS: Emergency Provider Family Medicine; PCP Physician Assistant
DX: Z29.14 Encounter for prophylactic rabies immune globulin (principal); Z20.3 Contact with and (suspected) exposure to rabies; Z23 Encounter for immunization; W55.01XA Bitten by cat, initial encounter
CPT/HCPCS: 36415; 80053; 85025; 87040; 90375; 90471; 90675; 90715; 96372; 99284

== ENCOUNTER 2023-11-10 11:00 | Oncology outpatient (recurring) (ONCR) | payer MEDICAID, SELFPAY ==
[2023-10-30 11:07] VITALS: BP 123/79; PULSE 74; RESP 18; TEMP 36.8; O2SAT 99
[2023-10-30] MEDS: rabies vaccine 2.5 unit SDV IM (11:12)
[2023-11-03 11:18] VITALS: BP 124/83; PULSE 91; RESP 16; TEMP 36.6; O2SAT 98
[2023-11-03] MEDS: rabies vaccine 2.5 unit SDV IM (11:44)
[2023-11-10] MEDS: rabies vaccine 2.5 unit SDV IM (11:32)
[2023-11-10 11:40] VITALS: BP 117/78; PULSE 76; RESP 16; TEMP 36.5; O2SAT 95
== END 2023-11-19 23:59 | disposition home or self-care (01) ==
PROVIDERS: PCP Physician Assistant; Visit Provider Family Medicine
DX: Z53.9 Procedure and treatment not carried out, unspecified reason (principal); Z20.3 Contact with and (suspected) exposure to rabies; Z23 Encounter for immunization; S61.451A Open bite of right hand, initial encounter; W55.01XA Bitten by cat, initial encounter
CPT/HCPCS: 90471; 90675

== ENCOUNTER 2023-12-18 05:51 | Day surgery (SDC) | payer MEDICAID, SELFPAY ==
[2023-12-18] VITALS (9 sets, daily range): BP systolic 120–154; BP diastolic 75–95; PULSE 62–94; RESP 16–18; TEMP 36.4–37.1; O2SAT 98–100; BMI 18.8
--- NOTE | 2023-12-18 05:25 | W.PM.OPSFHP ---
Same Day Surgery H&P Indication for Procedure/HPI DATE OF PROCEDURE: December 18, 2023 CHIEF COMPLAINT/INDICATIONFOR SURGICAL PROCEDURE: ovarian cyst pelvic pain PREOP DIAGNOSIS: ovarian cyst PLANNED PROCEDURE: Operation Date: 12/18/23 07:00 Proposed Procedures p Laparoscopic Ovarian Cystectomy 474192, N83.209(Bilateral) - Teto Mclaughlin MD 18 y.o. G0 on DMPA with 6 cm ovarian cyst now for laparoscopy, cystectomy, possible exploratory laparotomy Medications/Allergies* Home Medications Medication Instructions Recorded Confirmed Type albuterol sulfate 90 mcg/actuation 2 puff inhalation Q4H PRN 07/02/22 12/17/23 History aerosol inhaler (Ventolin HFA) Shortness Of Breath medroxyprogesterone 150 mg/mL 150 mg IM Q90D 07/02/22 12/17/23 History intramuscular suspension Epinephrine Mist 1 inh inhalation PRN PRN Wheezing 12/17/23 12/17/23 History escitalopram oxalate 10 mg tablet 10 mg PO DAILY 12/17/23 12/17/23 History (Lexapro) Allergies/Adverse Reactions Allergy/AdvReac Type Severity Reaction Status Date / Time soy Allergy Unknown Unknown Verified 12/17/23 11:20 kiwi Allergy Unknown Verified 12/17/23 11:20 latex Allergy Unknown Verified 12/17/23 11:20 seafood Allergy Unknown Uncoded 12/17/23 11:20 Pertinent History/Comorbid Conditions* Medical History (Updated 12/08/23 @ 19:31 by Teto Mclaughlin MD) Ovarian cyst Anemia Anxiety No pertinent family history Family History (Updated 11/25/23 @ 11:10 by Kathy Gilmore LPN) Denies family history of Colon cancer Ovarian cancer Prostate cancer Diabetes Heart disease Breast cancer Hypertension Uterine cancer Thyroid disease Stroke Social History Smoking and tobacco/nicotine status: never used tobacco/nicotine Pertinent Exam Findings alert, oriented x 3, clear to auscultation bilaterally and regular rate & rhythm Pertinent Data pelvic sono 10-16-23 normal uterus and endometrium 6 cm right ovarian clear cyst Normal left ovary Recommendations Surgery/Procedure today Coding Level of Care Code Acute Code for Chg Fwd Time Spent (min) 10
[2023-12-18] MEDS: sodium chloride 0.9% 1,000 ML 30 ML IV (06:26)
[2023-12-18 06:30] LABS: OR HCG Qualitative Urine Negative (Negative)
--- NOTE | 2023-12-18 06:31 | ANES.PREANE2 ---
Pre-Anesthetic Assessment Height/Weight: Height 5 ft 4 in Weight 110 lb Temp Pulse Resp BP Pulse Ox O2 Del Method 98.8 F 84 18 154/78 98 Room Air 12/18/23 06:11 12/18/23 06:11 12/18/23 06:11 12/18/23 06:11 12/18/23 06:11 12/18/23 06:13 Preop Diagnosis: ovarian cyst Operation Date: 12/18/23 07:00 Proposed Procedures p Laparoscopic Ovarian Cystectomy 844596, N83.209(Bilateral) - Teto Mclaughlin MD Was Beta Per taken within 24 hours: N/A Was Clonidine taken within 24 hours: N/A Last intake: Intake Last Liquid Date 12/17/23 Last Liquid Time 17:30 Last Solid Date 12/17/23 Last Solid Time 17:30 Social No alcohol and No tobacco Exam alert, oriented x 3, clear to auscultation bilaterally and regular rate & rhythm Airway Submandibular: within normal limits Cervical ROM: within normal limits Mallampati: Class I Dentition: partials Comments: Comments: Patient has an overbite Anesthetic Plan ASA status: 2 Anesthesia: General Other: No prior issues with anesthesia NPO since midnight Labs reviewed from October, test negative this a.m. Asthma, controlled with occasional albuterol use METs greater than 4 Plan for GETA Risk of > 500 ml blood loss (7ml/kg in children): Yes, adequate IV access and fluids planned Medications/Allergies Home Medications Medication Instructions Recorded Confirmed Last Taken Type albuterol sulfate 90 mcg/actuation 2 puff inhalation Q4H PRN 07/02/22 12/17/23 07/02/22 History aerosol inhaler (Ventolin HFA) Shortness Of Breath medroxyprogesterone 150 mg/mL 150 mg IM Q90D 07/02/22 12/17/23 10/21/23 History intramuscular suspension Epinephrine Mist 1 inh inhalation PRN PRN Wheezing 12/17/23 12/17/23 12/16/23 History escitalopram oxalate 10 mg tablet 10 mg PO DAILY 12/17/23 12/18/23 12/18/23 History (Lexapro) Allergies Allergy/AdvReac Type Severity Reaction Status Date / Time soy Allergy Unknown Unknown Verified 12/17/23 11:20 kiwi Allergy Unknown Verified 12/17/23 11:20 latex Allergy Unknown Verified 12/17/23 11:20 seafood Allergy Unknown Uncoded 12/17/23 11:20 Current Medications Generic Name Dose Route Start Last Admin Trade Name Gricel PRN Reason Stop Dose Admin Sodium Chloride 1,000 mls @ 30 mls/hr 12/18/23 06:15 12/18/23 06:26 Sodium Chloride 0.9% IV 12/19/23 06:14 30 mls/hr .Q24H SAMEER Administration PFSH Anesthesia Medical History (Updated 12/08/23 @ 19:31 by Teto Mclaughlin MD) Ovarian cyst Anemia Anxiety No pertinent family history Family History (Updated 11/25/23 @ 11:10 by Kathy Gilmore LPN) Denies family history of Colon cancer Ovarian cancer Prostate cancer Diabetes Heart disease Breast cancer Hypertension Uterine cancer Thyroid disease Stroke Social History Smoking and tobacco/nicotine status: never used tobacco/nicotine Data Anesthesia Cardiac Studies: No Data to Display
--- NOTE | 2023-12-18 06:49 | W.PM.OPSUD ---
Surgery/Procedure H&P Update DATE OF PROCEDURE: December 18, 2023 DATE H&P PERFORMED: 12/18/23 H&P UPDATE INFORMATION: I have reviewed H&P completed within last 30 days, I have examined patient prior to procedure and No changes to prior documentation PREOP DIAGNOSIS: ovarian cyst PLANNED PROCEDURE: Operation Date: 12/18/23 07:00 Proposed Procedures p Laparoscopic Ovarian Cystectomy 164142, N83.209(Bilateral) - Teto Mclaughlin MD
--- NOTE | 2023-12-18 08:50 | P.OP_ITS ---
Operative Report Date of procedure: December 18, 2023 Pre-op diagnosis: Pelvic pain Right ovarian complex cyst Post-op diagnosis: Pelvic pain 6 cm right fallopian tube cyst / paratubal cyst Post-op findings: Normal uterus Normal right and left ovaries Normal left fallopian tube Right fallopian tube involved with 6 cm simple appearing paratubal cyst Right fallopian tube fimbria not evident, involved in cyst Otherwise normal pelvis Procedure done: Laparoscopy Laparoscopic left salpingectomy and cystectomy Implants: none Specimens removed/disposition: left fallopian tube and cyst Surgeon: Teto Mclaughlin MD Anesthesia: General Estimated blood loss (mL): 5 Complications: none Findings: Normal uterus Normal right and left ovaries Normal left fallopian tube Right fallopian tube involved with 6 cm simple appearing paratubal cyst Right fallopian tube fimbria not evident, involved in cyst Otherwise normal pelvis Condition: stable Disposition: PACU Brief History: 18 y.o. G0 with pelvic pain and persistent right adnexal cyst on pelvic sono Procedure: Informed consent obtained. The patient was taken to the OR and placed supine on the table. General endotracheal anesthesia was given. The patient was then placed in dorsolithotomy position. The abdomen was prepped and draped in usual fashion. A banks catheter was placed. Patient has a upper midline vertical incision from a prior surgery. It was elected to use a left upper quadrant entry. A 2 mm incision was made in the left upper quadrant 3 cm from the inferior costal angle. A Veress needle was placed into the abdominal cavity. Adequate pneumoperitoneum was achieved. A 5 mm intraumbilical skin incision was made. A 5 mm trocar with sheath was then inserted into the peritoneal cavity under direct visualization with the laparoscope. Two separate 5 mm incisions were made in the right and left mid-abdominal quadrants under direct visualization to accommodate additional trocars and sheaths. The pelvis was explored with the laparoscope. Normal uterus, left ovary, right ovary and left fallopian tube were seen. No abnormalities were seen in the utero-ovarian ligaments, broad ligaments, anterior cul-de-sac and pelvic side- nugent. The right fallopian tube was seen to be involved with a 6 cm paratubal clear cyst. A large portion of the tube overlays and is intimately involved with the cyst and the right fimbria could not be identified. A Ligasure device was then used to excise the right fallopian tube and cyst, leaving the right ovary intact. A laparoscopic needle and syringe was used to drain the clear fluid. Approximately 50 cc was removed and discarded. The cyst was then removed via one of the ports. This was sent to pathology. No bleeding was seen The liver edge was visualized and was normal. The remainder of the pelvis was again examined and seen to be normal. All instruments were then removed from the abdominal cavity after the pneumoperitoneum was allowed to escape. The skin incisions were closed with 4-O monocryl. Dermabond was applied. The banks catheter was removed. The patient was then awakened and taken to the recovery room in good condition. Postop condition stable. EBL 5 cc. There were no complications. Sponge and instrument counts were correct x two
--- NOTE | 2023-12-18 09:55 | ANE.PACU2 ---
Inpatient post-anesthesia follow up: Airway intact: Yes Vital signs: Temperature 97.7 F Pulse Rate 88 Respiratory Rate 16 Blood Pressure 130/83 Pulse Oximetry 100 Oxygen Delivery Me thod Room Air Oxygen Flow Rate Fraction of Inspir ed Oxygen Hydration adequate: Yes Nausea and vomiting: No Pain level: 1 Mental status: Baseline
== END 2023-12-18 09:55 | disposition home or self-care (01) ==
PROVIDERS: Student in an Organized Health Care Education/Training Program; PCP Physician Assistant; Visit Provider Obstetrics & Gynecology
PROC: (CPT 58662; principal; 2023-12-18 07:00)
PROC: (CPT 58661; 2023-12-18 07:00)
DX: R10.2 Pelvic and perineal pain (principal); N83.8 Other noninflammatory disorders of ovary, fallopian tube and broad ligament; J45.909 Unspecified asthma, uncomplicated
CPT/HCPCS: 58661; 58662; 51702; 81025; 88302; J1100; J2250; J2405; J2704; J2710; J3010; J3490; J7030

== ENCOUNTER 2023-12-21 14:53 | Emergency (ER) | payer MEDICAID, SELFPAY ==
[2023-12-21 15:27] VITALS: BP 129/79; PULSE 93; RESP 16; TEMP 36.7; O2SAT 95; BMI 18.8
--- NOTE | 2023-12-21 17:10 | W.ED.ALLEREA ---
HPI - Allergic Reaction General: Chief complaint: Allergic Reaction Stated complaint: possible allergic skin reaction Time Seen by Provider: 12/21/23 16:22 History of Present Illness: HPI narrative: 18-year-old female comes in today for rash to the abdomen. Patient states that she started breaking out in a rash this morning. Patient had a recent procedure done to have a cyst removed off of one of her fallopian tubes. Today she awakened and noticed some itching to her stomach and a generalized papular rash. Patient denies any difficulty breathing or swallowing. Patient appears in no pain. Related Data Home Medications Medication Instructions Recorded Confirmed albuterol sulfate 90 mcg/actuation 2 puff inhalation Q4H PRN 07/02/22 12/17/23 aerosol inhaler (Ventolin HFA) Shortness Of Breath medroxyprogesterone 150 mg/mL 150 mg IM Q90D 07/02/22 12/17/23 intramuscular suspension Epinephrine Mist 1 inh inhalation PRN PRN Wheezing 12/17/23 12/17/23 escitalopram oxalate 10 mg tablet 10 mg PO DAILY 12/17/23 12/18/23 (Lexapro) Previous Rx's Medication Instructions Recorded hydrocortisone 2.5 % topical cream 1 applic topical TID PRN skin 12/21/23 irritation #30 grams hydroxyzine HCl 10 mg tablet 10 mg PO Q6H PRN itching #20 tabs 12/21/23 prednisone 20 mg tablet 20 mg PO DAILY 7 days #7 tabs 12/21/23 Allergies Allergy/AdvReac Type Severity Reaction Status Date / Time soy Allergy Unknown Unknown Verified 12/21/23 15:35 kiwi Allergy Unknown Verified 12/21/23 15:35 latex Allergy Unknown Verified 12/21/23 15:35 seafood Allergy Unknown Uncoded 12/21/23 15:35 Review of Systems General: Reports: 10 or more systems reviewed and unremarkable except in HPI and below PFSH ED PFSH: Medical History (Updated 12/21/23 @ 17:20 by BETTIE Hammond) Ovarian cyst Anemia Anxiety No pertinent family history Family History (Updated 11/25/23 @ 11:10 by Kathy Gilmore LPN) Denies family history of Colon cancer Ovarian cancer Prostate cancer Diabetes Heart disease Breast cancer Hypertension Uterine cancer Thyroid disease Stroke Social History Smoking and tobacco/nicotine status: never used tobacco/nicotine Female Reproductive History: Date of last menstrual period: 12/18/23 Physical Exam Const: COMMON NORMALS: alert HENMT: COMMON NORMALS: normocephalic HEAD & SCALP: normocephalic Neck/C-Spine: COMMON NORMALS: full ROM Resp: COMMON NORMALS: normal respiratory effort Cardio: COMMON NORMALS: regular rate RATE: regular rate : COMMON NORMALS: Yes no CVA tenderness BLADDER/KIDNEY EXAM: Yes no CVA tenderness Back/Pelvis: COMMON NORMALS: no CVA tenderness and thoracic and lumbar spine normal to inspection Extremity: COMMON NORMALS: normal to inspection Neuro: SENSORIUM/ORIENTATION: Yes alert Skin: NARRATIVE SKIN EXAM: Papular rash to the abdomen. Generalized. Course Vital Signs: Vital signs: Vital Signs Temperature 98.0 F 12/21/23 15:27 Pulse Rate 88 12/21/23 17:34 Respiratory Rate 17 12/21/23 17:34 Blood Pressure 133/79 12/21/23 17:34 Pulse Oximetry 96 12/21/23 17:34 Oxygen Delivery Me thod Room Air 12/21/23 17:34 MDM - Allergic Reaction Medical Decision Making Patient comes with a papular rash to the abdomen and itching. Patient has a light papular rash. Respirations are even lungs are clear to auscultation. Posterior pharynx is normal. Vital signs are normal. Differential diagnosis includes not limited to contact dermatitis, eczema, allergic reaction. Believe most likely patient has had a dermatitis reaction secondary to cleaning prior to her surgical procedure. Patient believes it might be from the skin adhesive although there is no significant erythema at the areas of the skin adhesive. Will go ahead and treat with hydrocortisone cream, steroid prednisone for the next 7 days, and some hydroxyzine to help with itching. Encourage fluids rest and follow-up with primary care or surgeon. No radiology studies performed this visit Discharge Plan Discharge Patient Disposition: Home Clinical Impression: Allergic reaction Qualifiers: Encounter type: initial encounter Qualified Code(s): T78.40XA - Allergy, unspecified, initial encounter Condition: Stable Prescriptions: New hydrocortisone 2.5 % cream 1 applic topical TID PRN (Reason: skin irritation) Qty: 30 0RF prednisone 20 mg tablet 20 mg PO DAILY 7 Days Qty: 7 0RF hydroxyzine HCl 10 mg tablet 10 mg PO Q6H PRN (Reason: itching) Qty: 20 0RF No Action albuterol sulfate [Ventolin HFA] 90 mcg/actuation HFA aerosol inhaler 2 puff INHALATION Q4H PRN (Reason: Shortness Of Breath) medroxyprogesterone 150 mg/mL suspension 150 mg IM Q90D escitalopram oxalate [Lexapro] 10 mg Tablet 10 mg PO DAILY Epinephrine Mist 1 inh inhalation PRN PRN (Reason: Wheezing) Discharge Orders: Discharge ED (Routine); Ordered 12/21/23 Ordered By: Virgilio Russ Referrals: Tayler Villalta PA [Primary Care Provider] - Discharge Diet: Usual diet Discharge Activity: Increase activity as tolerated Patient Instructions: Dermatitis (ED) Activity Restrictions/Additional Instructions: Home and rest. Use hydrocortisone cream 3 times a day to the skin of the stomach to help with irritation and itching. Take hydroxyzine 10 mg every 6 hours as needed for further itching relief. Use oral steroid 20 mg daily for the next 7 days. Follow-up with primary care in 2 to 3 days for recheck. Return to ED for worsening symptoms such as high fever greater than 100.4, chest pain, or increased shortness of breath. Coding Level of Care Code ED Electronic Maintenance Supervisor for Zia Vazquez
[2023-12-21 17:34] VITALS: BP 133/79; PULSE 88; RESP 17; O2SAT 96
[2023-12-21] MEDS: hyDROXYzine 25 mg Capsule PO (17:34)
[2023-12-21] MEDS: dexamethasone 10 mg/mL INJ IM (17:34)
[2023-12-21] MEDS: famotidine 20 mg Tablet 40 MG PO (17:35)
[2023-12-21 18:00] VITALS: BP 133/79; PULSE 77; RESP 17; O2SAT 96
== END 2023-12-21 18:01 | disposition home or self-care (01) ==
PROVIDERS: Emergency Provider Nurse Practitioner Family; PCP Physician Assistant
DX: T78.40XA Allergy, unspecified, initial encounter (principal); X58.XXXA Exposure to other specified factors, initial encounter
CPT/HCPCS: 96372; 99284; J1100

== ENCOUNTER 2024-01-02 20:12 | Emergency (ER) | payer MEDICAID, SELFPAY ==
[2024-01-02 20:14] VITALS: BP 131/88; PULSE 78; RESP 14; TEMP 36.8; O2SAT 99
[2024-01-02 21:04] LABS: Add Urine Microscopic? YES; Amorphous Sediment Urine 2+ /hpf; Bilirubin Urine Neg (Negative); Blood Urine 2+ (Negative); Glucose Urine UA Norm (Normal); Ketones Urine Negative (Negative); Leukocyte Esterase Urine Negative (Negative); Nitrate Urine Negative (Negative); Protein Urine Neg (Negative); RBC Urine 0-4 /hpf (0-2); Squamous Epithelial Cell Urine 0-4 /hpf (0-5); Urine Appearance Cloudy (CLEAR); Urine Color Yellow (Yellow); Urobilinogen Urine Neg (Negative); pH Urine 8 (5-7)
[2024-01-02 21:05] LABS: Add Urine Culture? No
[2024-01-02 21:05] LABS: Basophils % 0.3 %; Eosinophils # 0.8 10^3/uL (0.0-0.8); Eosinophils % 7.8 %; Hematocrit 38.3 % (36-47); Lymphocytes # 3.2 10^3/uL (1.5-6.5); Lymphocytes % 31.1 %; Mean Corpuscular HGB Conc 31.9 g/dL (30-55); Mean Corpuscular Hemoglobin 27.7 pg (27-33); Mean Corpuscular Volume 86.8 fl (85-98); Mean Platelet Volume 8.9 fL (7.4-10.4); Monocytes # 0.7 10^3/uL (0.2-0.9); Monocytes % 7.2 %; Neutrophils % 53.3 %; Nucleated Red Blood Cells % 0 %; Platelet Count 343 10^3/cmm (157-399); Red Blood Count 4.41 10^6/uL (3.85-5.65); Red Cell Distribution Width 13.7 % (12.1-15.1); White Blood Count 10.31 10^3/uL (4.5-13.0)
[2024-01-02 21:23] LABS: HCG, Serum Qual Negative (Negative)
[2024-01-02 21:27] LABS: Alanine Aminotransferase 22 U/L (0-33); Albumin Level 4.4 g/dL (3.5-5.2); Alkaline Phosphatase 76 U/L (35-105); Anion Gap 13.1 (5-19); Aspartate Amino Transferase 20 U/L (0-32); Blood Urea Nitrogen 12 mg/dL (6-20); Calcium 9.7 mg/dL (8.5-10.5); Carbon Dioxide 27 mmol/L (22-29); Chloride 104 mmol/L (98-107); Globulin 2.3 g/dL (1.3-4.6); Glomerular Filtration Rate 91.4 mL/min (90-130); Glucose 97 mg/dL (65-115); Osmolality Calculated 290 mOsm/kg (285-295); Potassium 4.1 mmol/L (3.5-5.1); Sodium 140 mmol/L (136-145); Total Bilirubin 0.2 mg/dL (0.15-1.2); Total Protein 6.7 g/dL (6.6-8.7)
== END 2024-01-02 22:06 | disposition left against medical advice (07) ==
PROVIDERS: Emergency Medicine; Emergency Provider Physician Assistant; PCP Physician Assistant
DX: Z53.21 Procedure and treatment not carried out due to patient leaving prior to being seen by health care provider (principal)
CPT/HCPCS: 80053; 81001; 84703; 85025